=== PATIENT | female | born 1950 | race Two or more races ===

== ENCOUNTER 2017-04-27 11:54 | Emergency (ER) | payer OTHER ==
[~2017-04-27] VITALS: Ht 165.1 cm; Wt 70.8 kg
[2017-04-27 11:54] VITALS: BP 133/86
[2017-04-27] MEDS ORDERED: hydrOXYzine 10 MG TABLET ONE (12:24)
[2017-04-27] MEDS ORDERED: predniSONE 20 MG TABLET ONE (12:25)
[2017-04-27] MEDS ORDERED: predniSONE 20 MG TABLET PO ONE (12:30)
[2017-04-27] MEDS ORDERED: hydrOXYzine PAMOATE 25 MG CAPSULE PO ONE (12:30)
== END 2017-04-27 12:37 | disposition home or self-care (01) ==
LOC: ER 11:55
DX: L25.8 Unspecified contact dermatitis due to other agents (principal); I10 Essential (primary) hypertension
CPT/HCPCS: 99283; A4606; J7512; Q0177; Z7610

== ENCOUNTER 2018-09-07 23:38 | Emergency (ER) | payer OTHER ==
[~2018-09-07] VITALS: Ht 165.1 cm; Wt 73.0 kg
--- NOTE | 2018-09-07 23:43 | NUR ---
PT BIBF. C/O "HAVING CHEST PRESSURE, +N/V, HIGH BP. GAVE [place], HAPPENED 3 WEEKS AGO, TOOK TO [facility] -CARDIAC" AOX4. -SOB. PT IS AAOX4 [place] SPEAKING ONLY, NOT IN RESPIRATORY DISTRESS, HOOKED TO [employer], KEPT RESTED AND COMFORTABLE, WILL CONTINUE TO MONITOR. AWAITING ER MD FOR EVAL.
--- NOTE | 2018-09-07 23:50 | NUR ---
IV LINE ESTABLISHED, LABS DRAWNED AND SENT TO LAB.
--- NOTE | 2018-09-07 23:56 | NUR ---
SEEN AND EXAMINED BY DR. BARNES.
[2018-09-08] MEDS ORDERED: METOPROLOL TARTRATE INJ 5 MG/5 ML AMPUL IVP ONE
[2018-09-08] MEDS ORDERED: ONDANSETRON HCL/PF 4 MG/2 ML VIAL IVP ONE
[2018-09-08] MEDS ORDERED: MORPHINE SULFATE INJ 2 MG/ML DISP.SYRIN IV ONE
[2018-09-08] MEDS ORDERED: ONDANSETRON HCL/PF 4 MG/2 ML VIAL ONE ×2 (00:02→01:07)
[2018-09-08] MEDS ORDERED: MORPHINE SULFATE INJ 2 MG/ML DISP.SYRIN ONE (00:02)
[2018-09-08] MEDS ORDERED: METOPROLOL TARTRATE INJ 5 MG/5 ML AMPUL ONE (00:02)
[2018-09-08 00:10] LABS: BASOPHILS # (AUTO) 0.1 /CMM (0.0-0.2); EOSINOPHILS % (AUTO) 0.5 % (0.0-6.0); HEMATOCRIT 38 % (33-45); HEMOGLOBIN 12.6 g/dL (11.5-14.8); LYMPHOCYTES # (AUTO) 4.7 /CMM (0.8-4.8); LYMPHOCYTES % (AUTO) 31.7 % (20.0-44.0); MEAN CORPUSCULAR HGB CONC 34 g/dl (31.0-36.0); MEAN CORPUSCULAR VOLUME 87 fL (82-100); MONOCYTES # (AUTO) 1.1 /CMM (0.1-1.30); MONOCYTES % (AUTO) 7.2 % (2.0-12.0); NEUTROPHILS # (AUTO) 8.7 /CMM (1.8-8.9); NEUTROPHILS % (AUTO) 59.6 % (43.0-81.0); PLATELET COUNT (AUTO) 391 /CMM (150-450); RED BLOOD CELL COUNT(AUTO) 4.31 MIL/uL (4.0-5.2); WHITE BLOOD COUNT (AUTO) 14.7 K/uL (4.3-11.0)
[2018-09-08 00:16] LABS: CALCIUM, SERUM 8.9 mg/dL (8.5-10.1); CARBON DIOXIDE 28 mmol/L (21-32); CHLORIDE 92 mmol/L (98-107); CREATININE 0.7 mg/dL (0.6-1.3); GLUCOSE 109 mg/dL (74-106); POTASSIUM 3.6 mmol/L (3.5-5.1); SODIUM SERUM 129 mmol/L (136-145); UREA NITROGEN, BLOOD 9 mg/dL (7-18)
--- NOTE | 2018-09-08 00:17 | NUR ---
PT IS WHEELED TO CT SCAN VIA [facility].
[2018-09-08] MEDS ORDERED: ONDANSETRON HCL/PF - ER 4 MG/2 ML VIAL IV ONE (01:30)
[2018-09-08 02:05] VITALS: BP 149/80
--- NOTE | 2018-09-08 02:05 | NUR ---
IV removed. Catheter intact and site benign. Pressure and 4x4 applied to site. No bleeding noted. Patient discharged to home in stable condition. Written and verbal after care instructions given. Patient verbalizes understanding of instruction.
== END 2018-09-08 02:44 | disposition home or self-care (01) ==
LOC: ER 23:40
DX: I10 Essential (primary) hypertension (principal); R11.2 Nausea with vomiting, unspecified
CPT/HCPCS: 36415; 70450; 71045; 80048; 84484; 85025; 93005; 96374; 96375; 96376; 99284; J2270; J2405 ×3; J3490